=== PATIENT | female | born 1985 | race Caucasian/White ===

== ENCOUNTER → 2019-03-12 | Outpatient (CLI) | payer OTHER ==
[2019-03-12 11:52] LABS: APPEARANCE,URINE SLIGHTLY-CLOUDY; BILIRUBIN,URINE NEGATIVE (NEGATIVE); COLOR,URINE YELLOW; GLUCOSE, URINE NEGATIVE (NEGATIVE); KETONES,URINE NEGATIVE (NEGATIVE); LEUKOCYTE ESTERASE,URINE TRACE (NEGATIVE); NITRITE,URINE NEGATIVE (NEGATIVE); PROTEIN,URINE NEGATIVE (NEGATIVE); URINE SPECIFIC GRAVITY 1.012; UROBILINOGEN,URINE NEGATIVE mg/dL (<2.0)
[2019-03-12 12:10] LABS: URINE AMPHETAMINES SCREEN NEGATIVE; URINE BARBITURATES SCREEN NEGATIVE; URINE BENZODIAZEPINES SCREEN NEGATIVE; URINE COCAINE SCREEN NEGATIVE; URINE METHADONE SCREEN NEGATIVE; URINE PHENCYCLIDINE SCREEN NEGATIVE
[2019-03-12 12:15] LABS: URINE MARIJUANA (THC) SCREEN UNCONFIRMED POSITIVE
--- NOTE | 2019-03-12 12:35 | Non Stress Test Report ---
Non Stress Test Datetime Report Generated by CPN: 03/12/2019 12:34 DEMOGRAPHIC EGA NST: 39.6 INDICATION Indication for Study: Ordered by Provider; Other Indication for Study: Ordered by Provider Indication for Study (NST) Other: repeat sent from office Indication for Study (NST) Other: lc repeat nst MONITORING Monitor Explained: Monitor Explained; Test Explained; Patient Verbalized Understanding Monitor Explained: Monitor Explained; Test Explained; Patient Verbalized Understanding Time on Monitor: 03/12/2019 11:34 Time on Monitor: 03/12/2019 11:46 NST INTERVENTIONS NST Interventions: PO Hydration Physician Notified NST: K Lassiter CNM BABY A: [id number] BABY A Movement : Present Movement : Present Contraction Frequency : intermittent FHR Baseline : 130 Accelerations : 15X15 Accelerations : 15X15 Decelerations : None Decelerations : None Variability : Moderate 6-25bpm Variability : Moderate 6-25bpm NST Review: Meets Criteria for Reactive NST NST Review: Meets Criteria for Reactive NST NST Review and Verified By : [place] RNC NST Results: Reactive NST Results: Reactive NST REPORT Report Trigger: Send Report
== END ==
LOC: LC 11:19
PROVIDERS: ATTEND Student in an Organized Health Care Education/Training Program
PROC: 4A1HXCZ Monitoring of Products of Conception, Cardiac Rate, External Approach (ICD-10-PCS; principal; 2019-03-12)
DX: Z34.93 Encounter for supervision of normal pregnancy, unspecified, third trimester (principal)
CPT/HCPCS: 81005; 80307; 84112; 59025; G0480 ×2; 80349

== ENCOUNTER 2019-03-17 18:42 | Inpatient (IN) | payer OTHER ==
[2019-03-17 19:40] LABS: ABSOLUTE EOSINOPHILS # (AUTO) 0.1 10^3/uL (0.0-0.6); ABSOLUTE MONOCYTES (AUTO) 0.7 10^3/uL (0.1-1.4); ABSOLUTE NEUT (AUTO) 12.2 10^3/uL (1.7-8.2); BASOPHILS % (AUTO) 0.3 % (0-2); EOSINOPHILS % (AUTO) 0.4 % (0-6); HEMOGLOBIN 13.1 g/dL (12.0-15.5); LYMPHOCYTES % (AUTO) 13.4 % (13-45); MEAN CORPUSCULAR HGB CONC 33.6 g/dL (32.0-36.0); MEAN CORPUSCULAR VOLUME 89 fl (80-97); MONOCYTES % (AUTO) 4.8 % (3-13); PLATELET COUNT 297 10^3/uL (150-450); RED BLOOD COUNT 4.37 10^6/uL (3.72-5.28); RED CELL DISTRIBUTION WIDTH 14.1 % (11.5-14.0); SEGMENTED NEUTROPHILS % (AUTO) 81.1 % (42-78); TOTAL CELLS COUNTED % (AUTO) 100 %
[2019-03-17] MEDS ORDERED: DINOPROSTONE 10 MG VAGINAL INSERT.SR ONE (20:22)
[2019-03-17] MEDS ORDERED: ACETAMINOPHEN 325 MG TABLET PO PRN (20:34)
[2019-03-17] MEDS ORDERED: RINGERS SOLUTION,LACTATED 300 ML IV ONE (20:34)
[2019-03-17] MEDS ORDERED: MAG HYDROX/AL HYDROX/SIMETH SUSP 30 ML UDCUP PO PRN (20:34)
[2019-03-17] MEDS ORDERED: ZOLPIDEM TARTRATE 5 MG TABLET PO PRN (20:34)
[2019-03-17] MEDS ORDERED: RINGERS SOLUTION,LACTATED 1,000 ML IV PRN (20:34)
[2019-03-17] MEDS ORDERED: DINOPROSTONE 10 MG VAGINAL INSERT.SR PV ONE (20:34)
[2019-03-17 22:36] LABS: APPEARANCE,URINE CLEAR; BILIRUBIN,URINE NEGATIVE (NEGATIVE); COLOR,URINE YELLOW; GLUCOSE, URINE NEGATIVE (NEGATIVE); KETONES,URINE NEGATIVE (NEGATIVE); LEUKOCYTE ESTERASE,URINE NEGATIVE (NEGATIVE); NITRITE,URINE NEGATIVE (NEGATIVE); PROTEIN,URINE NEGATIVE (NEGATIVE); URINE SPECIFIC GRAVITY 1.012; UROBILINOGEN,URINE NEGATIVE mg/dL (<2.0)
[2019-03-17 22:56] LABS: URINE AMPHETAMINES SCREEN NEGATIVE; URINE BARBITURATES SCREEN NEGATIVE; URINE BENZODIAZEPINES SCREEN NEGATIVE; URINE COCAINE SCREEN NEGATIVE; URINE METHADONE SCREEN NEGATIVE; URINE PHENCYCLIDINE SCREEN NEGATIVE
[2019-03-17 23:00] LABS: URINE MARIJUANA (THC) SCREEN UNCONFIRMED POSITIVE
[2019-03-17] MEDS ORDERED: ZOLPIDEM TARTRATE 5 MG TABLET ONE (23:49)
[2019-03-18] MEDS ORDERED: ACETAMINOPHEN 325 MG TABLET ONE (03:58)
--- NOTE | 2019-03-18 07:45 | Admission Physical ---
Datetime Report Generated by CPN: 03/18/2019 07:45 CURRENT ADMISSION Chief Complaint: Scheduled Induction of Labor Indication for Induction: Post Dates Admit Impression : Postterm, Intrauterine ; Intact Membranes; Induction of Labor Admit Plan: Admit to Unit; Initiate Labor Induction Protocol ALLERGIES Medication Allergies: No Medication Allergies: No Known Allergies (03/12/2019) Latex: No Latex Allergies OBSTETRICAL HISTORY EDC: 03/13/2019 00:00 : 3 Para: 0 Term: 0 : 0 SAB: 2 IAB: 0 Ectopic: 0 Livin Cesareans: 0 VBACs: 0 Multiple Births: 0 Gestational Diabetes: No Rh Sensitization: No Incompetent Cervix: No ALONDRA: No Infertility: No ART Treatment: No Uterine Anomaly: No IUGR: No Hx Previous C/S: No Macrosomia: No Hx Loss/Stillborn: No PIH: No Hx : No Placenta Previa/Abruption: No Depression/PP Depression: Yes PTL/PROM: No Post Hemorrhage: No Current Procedures: Ultrasound Obstetrical History Comments: g1 SAB at 8 weeks in 2017 g2 SAB 2017 g3 current SEE RECORDS Alcohol: No Marijuana : Yes Marijuana Frequency: Occasional Last Used: 03/10/2019 00:00 Cocaine: No Other Illicit Drugs: Yes Illicit Drug Comments: hx of heroin use, clean since 2012 Cigarettes: Former Smoker. [id number] MEDICAL HISTORY Diabetes: No Blood Transfusion: No Pulmonary Disease (Asthma, TB): No Breast Disease: No Hypertension: No Building Carpenter Surgery: No Heart Disease: No Hosp/Surgery: No Autoimmune Disorder: No Anesthetic Complications: No Kidney Disease: No Abnormal Pap Smear: No Neuro/Epilepsy: No Psychiatric Disorders: No Other Medical Diseases: No Hepatitis/Liver Disease: Yes Significant Family History: No Varicosities/Phlebitis: No Trauma/Violence : No Thyroid Dysfunction: No Medical History Comments: hep c positive, R ovarian cyst, hx of drug use clean since 2012 INFECTIOUS HISTORY Gonorrhea: No Genital Herpes: Yes Chlamydia: No Tuberculosis: No Syphilis: No Hepatitis: No HIV/AIDS Exposure: No Rash or Viral Illness: No HPV: No PHYSICAL EXAM General: Normal HEENT: Normal Neurologic: Normal Thyroid: Normal Heart: Normal Lungs: Normal Breast: Deferred Back: Normal Abdomen: Normal Genitourinary Exam: Normal Extremities: Normal DTRs: Normal Pelvic Type: Adequate Vital Signs: Reviewed VAGINAL EXAM Dilatation: 1 Effacement: 80 Station: -1 MEMBRANES Pooling: Negative Membranes: Intact FETUS A EGA: 40.5 Monitoring: External US FHR- Baseline: 140 Accelerations: 15X15 Decelerations: None FHR Category: Category I Admit Comment: hep c, efw 8 lb ll oz PLANS FOR LABOR AND DELIVERY Labor and Delivery: None Pain Management: Natural Other Pain Management Plans: open to epidural Feeding Preference: Breast Benefit of Breast Feed Discussed: Yes Circumcision: No INFORMED CONSENT Signature: with User ID: [email or web address]
[2019-03-18] MEDS ORDERED: PENICILLIN G-K 5 MILLION UNIT VIAL ONE ×3 (09:45→18:21)
[2019-03-18] MEDS ORDERED: OXYTOCIN/NORMAL SALINE 20 UNIT/1,000 ML RTUINJ IV PRN (09:56)
[2019-03-18] MEDS ORDERED: BUPIVACAINE HCL 0.25 % INJ/PF (2.5 MG/1 ML) 30 ML VIAL ONE (10:12)
[2019-03-18] MEDS ORDERED: EPHEDRINE SULFATE INJ 50 MG/1 ML AMPULE ONE (10:12)
[2019-03-18] MEDS ORDERED: FENTANYL/BUPIVACAINE/NS/PF 300 MCG/150 ML RTUINJ EPI ONE (10:12)
[2019-03-18] MEDS ORDERED: LIDOCAINE 1% INJ-PF (10 MG/ML) 30 ML SDV ONE (10:13)
[2019-03-18] MEDS ORDERED: OXYTOCIN/NORMAL SALINE 20 UNIT/1,000 ML RTUINJ ONE (10:13)
[2019-03-18] MEDS ORDERED: MISOPROSTOL 0.2 MG TABLET ONE ×2 (10:13→23:32)
[2019-03-18] MEDS ORDERED: OXYTOCIN 10 UNIT/ML VIAL ONE (10:13)
[2019-03-18] MEDS ORDERED: ONDANSETRON HCL INJ/PF 4 MG/2 ML SDV ONE (20:42)
[2019-03-18] MEDS ORDERED: TERBUTALINE SULFATE INJ/PF 1 MG/1 ML SDV ONE (21:08)
[2019-03-19] MEDS ORDERED: MISOPROSTOL 0.2 MG TABLET PR PRN (00:24)
[2019-03-19] MEDS ORDERED: MEASLES,MUMPS&RUBELLA VACC/PF 0.5 ML VIAL SUBCUT PRN (00:24)
[2019-03-19] MEDS ORDERED: OXYTOCIN/NORMAL SALINE 20 UNIT/1,000 ML RTUINJ IV PRN (00:24)
[2019-03-19] MEDS ORDERED: BENZOCAINE/MENTHOL AEROSOL SPRAY 56 ML TOP PRN (00:24)
[2019-03-19] MEDS ORDERED: DIPHENHYDRAMINE HCL 25 MG CAPSULE PO PRN (00:24)
[2019-03-19] MEDS ORDERED: DIPH/PERTUSS(ACELL)/TETANUS VAC/PF 0.5 ML SYR (>=10YO) IM PRN (00:24)
[2019-03-19] MEDS ORDERED: NA PHOS,M-B/NA PHOS,DI-BA (ADULT) 133 ML ENEMA PR PRN (00:24)
[2019-03-19] MEDS ORDERED: PROMETHAZINE HCL 25 MG TABLET PO PRN (00:24)
[2019-03-19] MEDS ORDERED: ACETAMINOPHEN 325 MG TABLET PO PRN (00:24)
[2019-03-19] MEDS ORDERED: ACETAMINOPHEN WITH CODEINE #3 TABLET PO PRN ×2 (00:24)
[2019-03-19] MEDS ORDERED: PROMETHAZINE HCL 25 MG SUPP.RECT PR PRN (00:24)
[2019-03-19] MEDS ORDERED: DIBUCAINE 1% OINTMENT 56 GM TP PRN (00:24)
[2019-03-19] MEDS ORDERED: PSEUDOEPHEDRINE HCL 30 MG TABLET PO PRN (00:24)
[2019-03-19] MEDS ORDERED: ZOLPIDEM TARTRATE 5 MG TABLET PO PRN (00:24)
[2019-03-19] MEDS ORDERED: MAGNESIUM HYDROXIDE SUSP 30 ML UDCUP PO PRN (00:24)
[2019-03-19] MEDS ORDERED: GLYCERIN/WITCH HAZEL LEAF 1 EACH MED..WIPE TP PRN (00:24)
[2019-03-19] MEDS ORDERED: PROMETHAZINE HCL INJ 25 MG/1 ML VIAL IV PRN (00:24)
[2019-03-19] MEDS ORDERED: IBUPROFEN 800 MG TABLET ONE ×2 (05:46→14:10)
[2019-03-19 08:04] LABS: HEMATOCRIT 35.5 % (36.0-47.0); HEMOGLOBIN 12.1 g/dL (12.0-15.5); MEAN CORPUSCULAR HEMOGLOBIN 29.9 pg (27.0-33.4); MEAN CORPUSCULAR HGB CONC 33.9 g/dL (32.0-36.0); MEAN CORPUSCULAR VOLUME 88 fl (80-97); PLATELET COUNT 273 10^3/uL (150-450); RED BLOOD COUNT 4.04 10^6/uL (3.72-5.28); RED CELL DISTRIBUTION WIDTH 14.1 % (11.5-14.0)
[2019-03-19 08:29] LABS: WHITE BLOOD COUNT 27.3 10^3/uL (4.0-10.5)
[2019-03-19 08:31] LABS: ABSOLUTE LYMPHOCYTES# (MANUAL) 2.2 10^3/uL (0.5-4.7); ABSOLUTE MONOCYTES # (MANUAL) 0.5 10^3/uL (0.1-1.4); BASOPHILS % (MANUAL) 0 % (0-2); EOSINOPHILS % (MANUAL) 0 % (0-6); LYMPHOCYTES % (MANUAL) 8 % (13-45); MONOCYTES % (MANUAL) 2 % (3-13); SEGMENTED NEUTROPHILS % (MAN) 90 % (42-78); TOTAL CELLS COUNTED 100
[2019-03-19 08:32] LABS: PLATELET COMMENT ADEQUATE; PLATELET LARGE PRESENT; RBC MORPHOLOGY COMMENT NORMO-CYTIC/CHROMIC
[2019-03-19] MEDS ORDERED: PRENATAL VITAMIN W DHA CAPSULE PO ONE (09:45)
[2019-03-19] MEDS ORDERED: SENNOSIDES/DOCUSATE 8.6-50 MG 1 EACH TABLET ONE (09:45)
[2019-03-19] MEDS ORDERED: FAMOTIDINE 20 MG TABLET ONE (09:46)
[2019-03-19] MEDS ORDERED: DOCUSATE SODIUM 100 MG CAPSULE ONE ×2 (09:46→14:10)
[2019-03-19] MEDS ORDERED: FERROUS SULFATE 325 MG TABLET PO ONE ×2 (09:46→14:10)
[2019-03-19] MEDS: SENNOSIDES/DOCUSATE 8.6-50 MG 1 EACH TABLET PO SCH (09:55)
[2019-03-19] MEDS: DOCUSATE SODIUM 100 MG CAPSULE PO SCH ×2 (09:55→17:17)
[2019-03-19] MEDS: FERROUS SULFATE 325 MG TABLET PO SCH ×2 (09:55→17:17)
--- NOTE | 2019-03-19 14:14 | PDOC PROGRESS REPORT ---
Subjective-OB Progress Note for:: 03/19/19 Physical Exam (OB) - General General Appearance: Alert In distress: None - Lochia Lochia Amount: Small 10-25 ml - Abdomen Description: Soft, Round Hernia Present: No Bowel Sounds: Normoactive Flatus Presence: Absent Stool: No Objective-Diagnostic Laboratory: 03/19/19 07:38 03/19/19 07:38 WBC 27.3 H RBC 4.04 Hgb 12.1 Hct 35.5 L MCV 88 MCH 29.9 MCHC 33.9 RDW 14.1 H Plt Count 273 Seg Neutrophils % Not Reportable
[2019-03-19] MEDS: IBUPROFEN 800 MG TABLET PO SCH ×3 (14:23→21:52)
[2019-03-19] MEDS: FAMOTIDINE 20 MG TABLET PO SCH ×2 (19:38→21:51)
[2019-03-19] MEDS: PRENATAL VITAMIN W DHA CAPSULE PO SCH (19:38)
[2019-03-20] MEDS: IBUPROFEN 800 MG TABLET PO SCH ×2 (06:08→13:42)
[2019-03-20 07:52] VITALS: BP 113/74
[2019-03-20 10:08] LABS: HEMATOCRIT 36.6 % (36.0-47.0); HEMOGLOBIN 12.3 g/dL (12.0-15.5); MEAN CORPUSCULAR HGB CONC 33.5 g/dL (32.0-36.0); MEAN CORPUSCULAR VOLUME 89 fl (80-97); PLATELET COUNT 276 10^3/uL (150-450); RED CELL DISTRIBUTION WIDTH 14.6 % (11.5-14.0); WHITE BLOOD COUNT 15.1 10^3/uL (4.0-10.5)
[2019-03-20] MEDS: PRENATAL VITAMIN W DHA CAPSULE PO SCH (10:10)
[2019-03-20] MEDS: FAMOTIDINE 20 MG TABLET PO SCH (10:10)
[2019-03-20] MEDS: SENNOSIDES/DOCUSATE 8.6-50 MG 1 EACH TABLET PO SCH (10:11)
[2019-03-20] MEDS: FERROUS SULFATE 325 MG TABLET PO SCH ×2 (10:11→17:20)
[2019-03-20] MEDS: DOCUSATE SODIUM 100 MG CAPSULE PO SCH ×2 (10:11→17:21)
--- NOTE | 2019-03-20 13:20 | PDOC DISCHARGE SUMMARY ---
Final Diagnosis Discharge Date: 03/20/19 - Final Diagnosis (1) Encounter for induction of labor Is this a current diagnosis for this admission?: Yes (2) Hepatitis C, chronic, maternal, antepartum Is this a current diagnosis for this admission?: Yes (3) Obstetrical laceration, second degree Is this a current diagnosis for this admission?: Yes (4) Vaginal delivery Is this a current diagnosis for this admission?: Yes Discharge Data - Discharge Medication Prescriptions: Ibuprofen [Motrin 800 mg Tablet] 800 mg PO Q8HP PRN #60 tablet PRN Reason: Home Medications: [id number]/Iron Fum/Folic/Docusate [ 19 Tablet] 1 each PO DAILY 03/12/19 Ibuprofen [Motrin 800 mg Tablet] 800 mg PO Q8HP PRN #60 tablet 03/20/19 Procedures: NST Intrapartum Procedure(s): Spontaneous Vaginal Delivery Complication(s): Laceration-Perineal Laceration-Degree: 2nd - Diagnosis Test Laboratory: Temp Pulse Resp BP Pulse Ox 97.4 F 76 16 113/74 98 03/20/19 07:39 03/20/19 07:39 03/20/19 07:39 03/20/19 07:39 03/20/19 07:39 03/17/19 03/17/19 03/19/19 19:25 19:50 07:38 RBC 4.37 4.04 Hgb 13.1 12.1 Hct 39.0 35.5 L Urine Opiates Screen NEGATIVE 03/20/19 09:48 RBC 4.10 Hgb 12.3 Hct 36.6 Urine Opiates Screen - Discharge information/Instructions Discharge Activity: Balance Activity w/Rest, Pelvic Rest Discharge Diet: Regular Disposition: HOME, SELF-CARE Follow up with: [facility] in: 4, Weeks
--- NOTE | 2019-03-24 14:43 | Delivery Summary ---
Del Sum A-C Datetime Report Generated by CPN: 03/24/2019 14:43 DELIVERY PERSONNEL DELIVERY PERSONNEL: [id number] Delivery Doctor:: Beronica Mckenna MD Anesthesiologist:: Nura Tadeo MD Labor and Delivery Nurse:: Helga Brower RNresort keeper Nurse:: Julita Jones RN Scientific Research Associate/FISHER EEL SPEAR: Cinthia Denny, FISHER EEL SPEAR II MATERNAL INFORMATION Delivery Anesthesia: Epidural Medications After Delivery: Pitocin 10 Units IM; Cytotec 1000mcg Per Rectum/Vagina Estimated Blood Loss (ml): 200 Delivery QBL Comment: 200 Maternal Complications: None Provider Comments: VMI delivered in CLARA presentation. no nuchal cord. Shoulders and body delivered without difficulty. Cord doubly clamped and cut and infant to maternal abdomen for NRP. Placenta delivered intact spontaneously. FF at U after cytotec 1000mcg DC and Pitocin. 2nd degree perineal laceration repaired with good hemostasis. Mother and baby stable upon provider leaving the room LABOR SUMMARY EDC: 03/13/2019 00:00 No. Babies in Womb: 1 Attempted: No Labor Anesthesia: Epidural LABOR INFORMATION Reason for Induction: Post Dates Onset of Labor: 03/18/2019 10:00 Complete Dilatation: 03/18/2019 21:13 Cervical Ripening Agents: Cervidil Cervical Ripening Agents: Cervidil Other Ripening Agents: Cooks catheter Oxytocin: Induction Group B Beta Strep: positive Antibiotics # of Doses: 3 Antibiotics Time of Last Dose: 1826 Name of Antibiotic Given: PCN G Steroids Given: None Reason Steroids Not Administered: Not Applicable MEMBRANES Membranes Rupture Method: Artificial Rupture of Membranes: 03/18/2019 15:15 Length of Rupture (hr): 7.62 Amniotic Fluid Color: Clear Amniotic Fluid Amount: Small Amniotic Fluid Odor: Normal STAGES OF LABOR Stage 1 hr: 11 Stage 1 min: 13 Stage 2 hr: 1 Stage 2 min: 39 Stage 3 hr: 0 Stage 3 min: 6 Total Time in Labor hr: 12 Total Time in Labor min: 58 VAGINAL DELIVERY Episiotomy: None Laceration #1: Perineal Laceration Extension #1: Second Degree Laceration Repair: Yes Laceration Repair Note: 2nd degree perineal laceration repaired in usual fashion Sponge Count Correct: Yes Sharps Count Correct: Yes BABY A INFORMATION Infant Delivery Date/Time: 03/18/2019 22:52 Method of Delivery: Vaginal Born in Route : No : N/A Forceps: N/A Vacuum Extraction: N/A Shoulder Dystocia : No PRESENTATION/POSITION BABY A Presentation: Cephalic Cephalic Presentation: Vertex Vertex Position: Right Occipital Anterior Breech Presentation: N/A PLACENTA INFORMATION BABY A Placenta Delivery Time : 03/18/2019 22:58 Placenta Method of Delivery: Spontaneous Placenta Method of Delivery: Spontaneous Placenta Status: Delivered SCORES BABY A Heart Rate 1 min: >100 bpm Resp Effort 1 min: Good Cry Reflex Irritability 1 min: Cough or Sneeze or Pulls Away Muscle Tone 1 min: Active Motion Color 1 min: Body [place], Extremities Blue Resuscitation Effort 1 min: Tactile Stimulation SCORE 1 MIN: 9 Heart Rate 5 min: >100 bpm Resp Effort 5 min: Good Cry Reflex Irritability 5 min: Cough or Sneeze or Pulls Away Muscle Tone 5 min: Active Motion Color 5 min: Body [place], Extremities Blue Resuscitation Effort 5 min: Tactile Stimulation SCORE 5 MIN: 9 INFANT INFORMATION BABY A Gestational Age at Delivery: 40.5 Gestational Status: Full Term- 39- 40.6 Weeks Outcome : Liveborn Condition : Stable Infant Sex: Male IDENTIFICATION BABY A Infant Verification Date/Time: 03/18/2019 23:01 ID Band Number: [id number] Mother's Name Verified: Yes RN Verifying Infant: Cara Dunlap RN and Greer Jones, RN WEIGHT/LENGTH BABY A Birthweight (gm): 3395 Weight (lb): 7 Weight (oz): 8 Infant Length (in): 21.25 Infant Length (cm): 53.98 CORD INFORMATION BABY A No. Cord Vessels: 3 Nuchal Cord : N/A Cord Blood Taken: Yes-For Eval (Mom's Blood Type - or O+) Suction: Mouth; Nose ASSESSMENT BABY A Complications: Multiple Late Decels; Meconium Physical Findings at Delivery: Caput Succedaneum Respirations: Appears Normal Skin to Skin: Yes Fraternity Adviser/ALS Called : No Transferred To: Remains with Mother BABY B INFORMATION : N/A SIGNATURES Signature: with User ID: [email or web address] Signature: with User ID: [email or web address] : with User ID: [email or web address]
== END 2019-03-20 17:59 | disposition home or self-care (01) | DRG 806 ==
LOC: LR 18:42 → 2S 03-19 16:25
PROVIDERS: ADMIT Student in an Organized Health Care Education/Training Program; ATTEND Student in an Organized Health Care Education/Training Program
PROC: 10E0XZZ Delivery of Products of Conception, External Approach (ICD-10-PCS; principal; 2019-03-18)
PROC: 0KQM0ZZ Repair Perineum Muscle, Open Approach (ICD-10-PCS; 2019-03-18)
DX: O48.0 Post-term pregnancy (principal); O98.42 Viral hepatitis complicating childbirth; Z37.0 Single live birth; B19.20 Unspecified viral hepatitis C without hepatic coma; O99.334 Smoking (tobacco) complicating childbirth; F17.210 Nicotine dependence, cigarettes, uncomplicated; O99.824 Streptococcus B carrier state complicating childbirth; O70.1 Second degree perineal laceration during delivery; O76 Abnormality in fetal heart rate and rhythm complicating labor and delivery; O77.0 Labor and delivery complicated by meconium in amniotic fluid; Z3A.40 40 weeks gestation of pregnancy
CPT/HCPCS: 36415; 80307; 81005; 85025; 85027; 86592; 86695; 86850; 86900; 86901; J2405; J2540; J2590; J3010; J3105; J3490

== ENCOUNTER 2019-07-15 05:29 | Day surgery (SDC) | payer OTHER ==
[2019-07-13 12:03] LABS: HEMATOCRIT 41.4 % (36.0-47.0); HEMOGLOBIN 13.8 g/dL (12.0-15.5); MEAN CORPUSCULAR HEMOGLOBIN 29.3 pg (27.0-33.4); MEAN CORPUSCULAR HGB CONC 33.4 g/dL (32.0-36.0); MEAN CORPUSCULAR VOLUME 88 fl (80-97); PLATELET COUNT 287 10^3/uL (150-450); RED BLOOD COUNT 4.72 10^6/uL (3.72-5.28); RED CELL DISTRIBUTION WIDTH 13.7 % (11.5-14.0); WHITE BLOOD COUNT 6.4 10^3/uL (4.0-10.5)
[2019-07-13 12:22] LABS: APPEARANCE,URINE CLEAR; BILIRUBIN,URINE NEGATIVE (NEGATIVE); COLOR,URINE YELLOW; GLUCOSE, URINE NEGATIVE (NEGATIVE); KETONES,URINE NEGATIVE (NEGATIVE); LEUKOCYTE ESTERASE,URINE NEGATIVE (NEGATIVE); NITRITE,URINE NEGATIVE (NEGATIVE); PROTEIN,URINE NEGATIVE (NEGATIVE); URINE SPECIFIC GRAVITY 1.013; UROBILINOGEN,URINE NEGATIVE mg/dL (<2.0)
[~2019-07-15 05:29] MED LIST: CEFAZOLIN SODIUM 2 GM in DEXTROSE 5%-WATER 100 ML IV PRN; LACTATED RINGERS 1000 ML IV PRN; LIDOCAINE 0.5% INJ-PF (5 MG/ML) 50 ML SDV SUBCUT PRN
[2019-07-15] MEDS ORDERED: KETOROLAC TROMETHAMINE 60 MG/2 ML SDV ONE (06:56)
[2019-07-15] MEDS ORDERED: FENTANYL CITRATE INJ/PF 100 MCG/2 ML AMPUL ONE ×2 (06:56→09:25)
[2019-07-15] MEDS ORDERED: DEXAMETHASONE SOD PHOSPHATE INJ 4 MG/1 ML VIAL ONE (06:57)
[2019-07-15] MEDS ORDERED: PROPOFOL INJ 200 MG/20 ML VIAL IV ONE (06:57)
[2019-07-15] MEDS ORDERED: MIDAZOLAM 2 MG/2 ML INJ ONE (06:57)
[2019-07-15] MEDS ORDERED: ONDANSETRON HCL INJ/PF 4 MG/2 ML SDV ONE ×2 (06:57→10:49)
[2019-07-15] MEDS ORDERED: BUPIVACAINE HCL 0.25 % INJ/PF (2.5 MG/1 ML) 30 ML VIAL ONE (07:08)
[2019-07-15] MEDS ORDERED: MORPHINE SULFATE 10 MG/ML INJ IV PRN (08:22)
[2019-07-15] MEDS ORDERED: ONDANSETRON HCL INJ/PF 4 MG/2 ML SDV IV PRN ×2 (08:22→10:27)
[2019-07-15] MEDS ORDERED: DIPHENHYDRAMINE HCL 50 MG/ML VIAL IV PRN (08:22)
[2019-07-15] MEDS ORDERED: MEPERIDINE HCL/PF INJ 25 MG/1 ML DISP.SYRIN IV PRN (08:22)
[2019-07-15] MEDS ORDERED: FENTANYL CITRATE INJ/PF 100 MCG/2 ML AMPUL IV PRN ×3 (08:22)
[2019-07-15] MEDS ORDERED: OXYCODONE-ACETAMINOPHEN 5-325 MG TABLET PO PRN ×2 (08:22)
[2019-07-15] MEDS ORDERED: PROMETHAZINE HCL INJ 25 MG/1 ML VIAL IV PRN ×2 (08:22)
[2019-07-15] MEDS ORDERED: MORPHINE SULFATE 10 MG/ML INJ ONE (08:26)
--- NOTE | 2019-07-15 10:59 | Operative Report ---
Operative Report DATE OF SURGERY: 07/15/19 PREOPERATIVE DIAGNOSIS: Right adnexal mass persistent. POSTOPERATIVE DIAGNOSIS: large right ovarian mass, Left ovary cyst possible fibroma, Endometriosis OPERATION: Operative Laparoscopy with Left Ovary biopsy, Right Ovarian cyst ectomy SURGEON: ELIZABETH ROBERTS ANESTHESIA: GA TISSUE REMOVED OR ALTERED: Left ovary biopsy, right ovarian cystectomy, pelvic washings, right ovarian cyst fluid COMPLICATIONS: none ESTIMATED BLOOD LOSS: 50ml INTRAOPERATIVE FINDINGS: IVF 1800ml, UOP 250ml. Large approximately 8cm right ovarian cyst with cystectomy performed - surgicel and floseal placed, interceed placed over the ovary, left ovary with possible old corpus luteum cyst biopsied PROCEDURE: Anesthesiologist: Estimated blood loss: [] IV fluids: [] Urine output: [] Indications: [] Procedure: The patient was taken to the operating room where general anesthesia was obtained without difficulty. The patient was then examined under anesthesia with findings as noted above with a small anteverted uterus and possible left adnexal mass. She was then placed in dorsal supine lithotomy position and prepped and draped in the normal sterile fashion. Comer speculum was then placed in the patient's vagina and the anterior lip of the cervix grasped with a single-tooth tenaculum. A CropUp uterine manipulator was then advanced into the uterus to provide a means of manipulation of the uterus. The speculum and tenaculum were then removed from the patient's cervix and vagina. Attention was then turned to the patient's abdomen where a 5 mm infraumbilical skin incision was then made. The Optiview trocar with 0 laparoscope was then advanced without difficulty under direct visualization with the Optiview trocar. This was performed while tenting the abdominal wall and these will fashion. Intraperitoneal placement was confirmed by the direct visualization. Pneumoperitoneum was then obtained with approximately 4 L carbon dioxide gas. Survey of the patient's abdomen and pelvis revealed findings as noted above. A second skin incision was then made approximately 3 cm superior 4 cm medial to the anterior superior iliac spine on the left and then a third skin incision was made approximately 3 cm superior to the lower incision. These incisions were made under direct visualization with the laparoscope. The second and third trochars were then advanced under direct visualization of the laparoscope at the sites. The right fallopian tube was then identified and followed out to the fimbriated end and the LigaSure device was used to clamp and cauterize and cut the mesosalpinx extending from the fimbriated end to the cornua of the uterus th us removing the right fallopian tube in its entirety. The right ovary was noted to be normal and vasculature remained intact to this ovary. Attention was then turned to the left adnexa at which time the left fallopian tube was identified and followed out to the fimbriated end. LigaSure device was then used to clamp and cauterize and cut the mesosalpinx extending from the fimbriated end of the l eft fallopian tube to the uterine cornual thus removing the left fallopian tube in its entirety. The left and right fallopian tubes were removed easily through the trocar. All operative sites were visualized and noted to be hemostatic. The 2 additional trochars on the patient's left greater than removed under direct visualization. The 10 mm trocar was then removed after abdominal insufflation was removed. The fascia at the 10 mm trocar site was closed with 0 Vicryl on a UR 6 needle. The skin at all trocar sites were closed with 3-0 Monocryl in a subcuticular fashion with overlying Dermabond. No antibiotics were indicated for this procedure. After completion of skin closure of the trocar sites attention was then turned to the vagina where the [place] uterine manipulator was removed and the bivalve speculum was replaced. Silver nitrate was applied to the tenaculum sites for hemostasis and the speculum was removed. Sponge lap needle and instrument counts were correct 3. The patient tolerated the procedure well and was taken to the recovery area awake and in stable condition.
[2019-07-15] MEDS ORDERED: ACETAMINOPHEN 1,000 MG/100 ML RTUPB IV PRN (12:00)
[2019-07-15] MEDS ORDERED: SUCCINYLCHOLINE CHLORIDE INJ 200 MG/10 ML VIAL ONE (12:40)
[2019-07-15] MEDS ORDERED: VECURONIUM BROMIDE INJ 10 MG VIAL IV ONE (12:40)
[2019-07-15] MEDS ORDERED: PHENYLEPHRINE HCL INJ/PF 10 MG/1 ML SDV ONE (12:40)
[2019-07-15] MEDS ORDERED: GLYCOPYRROLATE 1 MG/5 ML VIAL ONE (12:40)
[2019-07-15 12:51] VITALS: BP 118/67
== END 2019-07-15 12:00 | disposition home or self-care (01) ==
LOC: OROUT 05:29
PROVIDERS: ATTEND Student in an Organized Health Care Education/Training Program
DX: N83.201 Unspecified ovarian cyst, right side (principal); N80.1 Endometriosis of ovary; N70.92 Oophoritis, unspecified; Z87.891 Personal history of nicotine dependence; Z79.899 Other long term (current) drug therapy
CPT/HCPCS: 36415; 85027; 81005; 81025; 88162; 88342 ×2; 88341 ×2; 88305 ×2; 00840; 58662; 49321; C1765; J2250; J0690; J1100; J1885; J3010; J3490 ×2; J2270; J2370; J0330; J2405; J7060; J2704; 840